=== PATIENT | male | born 1935 | race Caucasian/White ===

== ENCOUNTER 2016-08-21 15:06 | Day surgery (SDC) | payer OTHER ==
[~2016-08-21] VITALS: Ht 172.7 cm; Wt 129.3 kg
[~2016-08-21 15:06] MED LIST: ASPIRIN325 MG PO; CALCIUM ACETAT667 MG PO; COD LIVER OIL1 EACH PO; COREG6.25 M1 PO; DIOVAN160 MG PO; FERREX 150150 MG PO; LIPITOR20 MG PO; LOFIBRA67 MG PO
[2016-08-21 15:52] LABS: HEMATOCRIT 32.8 % (38.0-50.0); MCH 30.1 PG (29.0-34.0); MCHC 30.8 G/DL (30.0-36.0); MCV 97.6 FL (86-99); MEAN PLAT.VOLUME 10.2 uM^3 (9.0-12.4); NRBC (%) 0.3 /100 WBC (0-0); PLATELET COUNT 196 K/uL (156-360); RBC DIS.WIDTH-CV 15.9 % (11.8-14.6); RBC DIS.WIDTH-SD 56.1 % (39-53); RED BLOOD COUNT 3.36 M/uL (4.00-5.50); WHITE BLOOD COUNT 7.2 K/uL (4.1-10.2)
[2016-08-21 16:01] LABS: ANION GAP 16 MEQ/L (2-14); CHLORIDE 101 MEQ/L (99-109); SAMPLE HEMOLYSIS CHECK 0; SAMPLE ICTERIC CHECK 0; SAMPLE LIPEMIA CHECK 0; SODIUM 140 MEQ/L (136-147)
[2016-08-21 16:02] VITALS: BP 120/53
[2016-08-21 16:07] LABS: GFR ESTIMATE (CALCULATED) 4 mL/min/; GLUCOSE 87 mg/dL (70-99); UREA NITROGEN (BUN) 51 mg/dL (9-23)
[2016-08-21 17:04] LABS: METH RESISTANT S AUREUS PCR NEGATIVE (NEGATIVE)
[2016-08-21 17:57] LABS: PROBE CHECK PASS; SPECIMEN PROCESSING CONTROL PASS
[2016-08-21] MEDS ORDERED: NORCO 5/3251 TABLET PO (18:33)
[2016-08-21 19:03] VITALS: BP 161/72
[2016-08-21 20:01] VITALS: BP 156/60
== END 2016-08-21 20:12 | disposition home or self-care (01) ==
LOC: SDC 15:06
PROVIDERS: Surgery
DX: T82.858A Stenosis of other vascular prosthetic devices, implants and grafts, initial encounter (principal); Y83.2 Surgical operation with anastomosis, bypass or graft as the cause of abnormal reaction of the patient, or of later complication, without mention of misadventure at the time of the procedure; I12.0 Hypertensive chronic kidney disease with stage 5 chronic kidney disease or end stage renal disease; N18.6 End stage renal disease; Z99.2 Dependence on renal dialysis; J44.9 Chronic obstructive pulmonary disease, unspecified; E78.5 Hyperlipidemia, unspecified; M19.90 Unspecified osteoarthritis, unspecified site; I48.91 Unspecified atrial fibrillation; Z95.1 Presence of aortocoronary bypass graft; Z95.0 Presence of cardiac pacemaker; Z87.891 Personal history of nicotine dependence
CPT/HCPCS: 80048; 85027; 87641; 93005; C1757; C1769; C1894; C2628; J1644; J2250